=== PATIENT | female | born 1985 | race Caucasian/White ===

== ENCOUNTER 2018-04-29 08:30 | Day surgery (SDC) | payer OTHER ==
[~2018-04-29 08:30] MED LIST: Buffered Lidocaine 0.9% SYRIN* 5 ML/SYR SYRINGE INTRADERM ONE; Dexamethasone TAB* 4 MG PO ONE; DiMENhydriNATE IV* 50 MG/ML VIAL IV PUSH PRN; Famotidine IV* 10 MG/ML 2 ML (20 mg) IV ONE; KETAMINE HCL* 50 MG/ML 10 ML VIAL ONE; Midazolam* 1 MG/ML 5 ML VIAL (5 MG) ONE; Morphine INJ* 2 MG/ML 1 ML SYRINGE (TWO MG - NEW SYRINGE VERSION) IV PRN; Naloxone* 0.4 MG/ML 1 ML VIAL IV PRN; Ondansetron TAB* 4 MG PO ONE; PROCHLORPERAZINE INJ 5 MG/ML 2 ML VIAL IV PRN; Scopolamine 1.5 mg* PATCH TRANSDERM PRN; fentaNYL* 50 MCG/ML 2 ML VIAL (100 MCG VIAL) ONE; oxyCODONE/Acetamin 5/325 MG* TAB PO PRN
[2018-04-29] MEDS ORDERED: Famotidine IV* 10 MG/ML 2 ML (20 mg) ONE (08:56)
[2018-04-29] MEDS ORDERED: ceFAZolin 2 GM PREMIX (*) 2 GM/50 ML BAG IVPB ONE (08:56)
[2018-04-29] MEDS ORDERED: Dexamethasone TAB* 4 MG ONE (08:56)
[2018-04-29] MEDS ORDERED: Ondansetron ODT TAB* 4 MG ONE ×2 (08:56→09:17)
[2018-04-29] MEDS ORDERED: Lidocaine 1% MPF wEPI 200,000* 30 ML SDV ONE (10:23)
[2018-04-29] MEDS ORDERED: Bupivacaine 0.5% PF 10 ML VIAL INJ ONE (10:25)
[2018-04-29] MEDS ORDERED: Lidocaine 2% PF * 5 ML VIAL ONE (10:56)
[2018-04-29] MEDS ORDERED: Ketorolac INJ* 30 MG/ML 1 ML VIAL ONE (10:56)
[2018-04-29] MEDS ORDERED: Propofol* 10 MG/ML 20 ML BTL IV PUSH ONE (10:56)
[2018-04-29] MEDS ORDERED: PROCHLORPERAZINE INJ 5 MG/ML 2 ML VIAL ONE ×2 (10:56→12:40)
[2018-04-29] MEDS ORDERED: fentaNYL* 50 MCG/ML 2 ML VIAL (100 MCG VIAL) ONE (11:51)
[2018-04-29] MEDS: fentaNYL* 50 MCG/ML 2 ML VIAL (100 MCG VIAL) IV PRN ×3 (11:52→12:15)
[2018-04-29] MEDS ORDERED: oxyCODONE/Acetamin 5/325 MG* TAB ONE (12:36)
[2018-04-29 13:55] VITALS: BP 137/85
--- NOTE | 2018-04-30 05:16 | OP ---
CC: PCP, Omega Venegas MD * DATE OF OPERATION: 04/29/18 - [facility] DATE OF : 89 ATTENDING SURGEON: Kelle Welch MD S[employer]OL [employer]ANDARDS COACH: LEIDA Turner. An underwriting assistant was needed for the entirety of the case to help with positioning, retraction, and was utilized throughout all portions of the case. ANESTHESIOLOGIST: Dr. Mendosa. ANESTHESIA: General. PRE-OP DIAGNOSIS: Bucket-handle lateral meniscus tear of the left knee. POST-OP DIAGNOSES: 1. Bucket-handle lateral meniscus tear of the left knee. 2. Intact anterior cruciate ligament reconstruction. OPERATIVE PROCEDURE: Left knee arthroscopy with lateral meniscal repair as well as debridement of synovitis. COMPLICATIONS: None. ESTIMATED BLOOD LOSS: Minimal. IMPLANTS USED: Two [employer] Fast-Fix. INDICATION: Ms. Nisha Maldonado is a 33-year-old female who presented with an acute injury on 04/06/18 while she was doing ultimate [employer]. She sustained a buckle-handle lateral meniscus tear. She had a blocked motion and plan was to proceed with surgery as early as convenient. She had an ACL reconstruction, which is a transtibial technique with hamstring autograft. She has had no episodes of instability that was done several years ago. Risks and benefits were discussed at length to include, but not limited to, bleeding; infection; damage to nerves, vessels, surrounding structures; wound nonhealing; persistent pain; need for surgery; scaring; stiffness; incomplete relief of symptoms; risks of anesthesia; risk of DVT. She currently lives in [place] and knows that travelling is going to be difficult for her, but she had [employer] insurance and is aware of the risk of DVT. DESCRIPTION OF PROCEDURE: The patient was greeted in the preoperative area by the attending surgeon. Correct extremity was marked, consent was confirmed. The patient was brought back to the operating suite where she was placed in a supine position on the operating room table. She then underwent general anesthesia with LMA intubation, after which the knee was examined under anesthesia and had a grade 1A Jhony. Range of motion was 0 to 140 degrees. An unsterile tourniquet was placed high in the proximal thigh in the lateral post position. The left leg was prepped and draped in the usual sterile fashion beginning with chlorhexidine soap, scrub, and alcohol wipe, and a final prep with ChloraPrep. After appropriate surgical pause indicating site, side, procedure, and administration of antibiotics the knee was intra-articularly injected with 1% lidocaine with epi. The lateral portal was made in an outside-in fashion. The scope was positioned into the joint. There was abundant synovitis anteriorly that required removal. An anteromedial portal was made in an outside-in fashion. The shaver was used to debride back the fat pad and scarring anteriorly as well as anterolaterally. There was evidence of an acute bucket- handle meniscus tear that was present, there was hemorrhage present. The knee was placed in a [id number] position and this was gently reduced. The body of the meniscus had fair amount of fraying and there was concern that this may not be repairable, but the tissue was probed and found to be okay quality. This was probed with an 18-gauge needle. We did talk about how this is not repairable, we will try for a partial meniscectomy, but due to her young age and her activity demand, she would like a repair. The meniscal edges were rasped with a meniscal rasp to allow for bleeding. Then, the first Fast Fix was placed posterior to the popliteus in a vertical mattress fixed- type fashion. This helped to stabilize the meniscus. A second one was placed more anterior to the popliteus and the body. This was more of a horizontal mattress because of the nature of the tissue. The shaver was used to debride back the unstable fraying of the lateral meniscus. The lateral portal condyle had grade 0 to 1 changes. The lateral plateau had grade 1 changes and small areas of fissuring with some softening. The ACL was intact. The knee was taken through full range of motion to see if this would displace the meniscus and held quite well. The medial compartment was examined and had grade 0 to 1 changes in the medial femoral condyle and medial plateau. The medial meniscus was intact. The patellar femoral joint was intact with grade 0 to 1 changes. The remainder of the synovitis was removed anterolaterally with a shaver. Final images were obtained. The wounds were copiously irrigated with sterile saline. Portals were closed with 3-0 nylon and the portals were injected with 0.25% Marcaine plain. Sterile dressings were applied as well as Cryo/Cuff and hinge knee brace with range of motion locked from 0 to 70 degrees. She was awoken from anesthesia and transferred to PACU in stable condition. POSTOPERATIVE PLAN: She will be nonweightbearing for 4 weeks. Her range of motion will be 0 to 70 degrees for the first 4 weeks. She will be discharged on pain medications and antibiotics due to her repeat surgery as well as aspirin 325 mg p.o. b.i.d. She is on control. She is going on a trip. She understands there is a risk of DVT. We did talk about other treatment and the signs and symptoms of DVT. I will see the patient back in 10 days for a followup visit versus have her see one of my colleagues closer to her in [place]. [id number]/[facility] #: [id number] SHAWN
[2018-05-02] MEDS ORDERED: Scopolamine PATCH Remove* 1 NOTE MISC PATCH OFF ONE (05:44)
== END 2018-04-29 13:38 | disposition home or self-care (01) ==
LOC: OR 08:30
PROVIDERS: ATTEND Orthopaedic Surgery
DX: S83.252A Bucket-handle tear of lateral meniscus, current injury, left knee, initial encounter (principal); X50.0XXA Overexertion from strenuous movement or load, initial encounter; Y93.74 Activity, frisbee; Y92.89 Other specified places as the place of occurrence of the external cause
CPT/HCPCS: 36415; 81025; 86703; A9270-GY; J0690; J0780; J1885; J2001; J2250; J2704; J3010; J8540